=== PATIENT | male | born 1970 | race Caucasian/White ===

== ENCOUNTER 2021-04-24 10:33 | Emergency (ER) | payer OTHER ==
[2021-04-24 10:42] VITALS: BP 134/80; PULSE 87; TEMP 98; BMI 30.1
[2021-04-24] MEDS ORDERED: IBUPROFEN 600 MG TABLET (FP) PO ONE ×2 (10:53→11:14)
== END 2021-04-24 12:12 | disposition home or self-care (01) ==
LOC: JERFT 10:33
DX: S62.664A Nondisplaced fracture of distal phalanx of right ring finger, initial encounter for closed fracture (principal); W45.8XXA Other foreign body or object entering through skin, initial encounter; W25.XXXA Contact with sharp glass, initial encounter
CPT/HCPCS: 73140-TC-RT-FY; 99283-25

== ENCOUNTER 2021-05-04 11:27 | Emergency (ER) | payer BC, OTHER ==
[2021-05-04 11:32] VITALS: BP 145/88; PULSE 75; TEMP 97.9
[2021-05-04] MEDS ORDERED: FAMOTIDINE 20 MG TABLET PO ONE (12:14)
[2021-05-04] MEDS ORDERED: ACETAMINOPHEN 500 MG TABLET (FP) PO ONE (12:14)
[2021-05-04] MEDS ORDERED: MAG HYDROX/AL HYDROX/SIMETH 30 ML UNIT-DOSE CUP PO ONE (12:14)
[2021-05-04] MEDS ORDERED: FAMOTIDINE 20 MG TABLET ONE (12:25)
[2021-05-04] MEDS ORDERED: MAG HYDROX/AL HYDROX/SIMETH 30 ML UNIT-DOSE CUP ONE (12:26)
[2021-05-04 13:36] LABS: BASO % 0.8 % (0-2.0); HEMATOCRIT 41.8 % (35.4-49); LYMPH % 32.1 % (8-40); MCH 28.8 pg (25.7-33.7); MCHC 33.4 g/dl (32.0-35.9); MEAN CELL VOLUME 86.2 fl (80-96); MONO % 9.7 % (3.8-10.2); NEUT % 53.4 % (42.8-82.8); PLATELET COUNT 212 10^3/uL (134-434); RBC 4.85 M/mm3 (4.00-5.60); RDW 13.1 % (11.9-15.9); WHITE BLOOD COUNT 7.2 K/mm3 (4.0-10.0)
[2021-05-04 14:01] LABS: CALCIUM 9.2 mg/dL (8.5-10.1)
[2021-05-04 14:02] LABS: ALBUMIN 3.9 g/dl (3.4-5.0); BLOOD UREA NITROGEN 14.8 mg/dL (7-18)
[2021-05-04 14:06] LABS: BILIRUBIN,TOTAL 0.9 mg/dL (0.2-1); TOT PROT 7.5 g/dl (6.4-8.2)
== END 2021-05-04 14:13 | disposition home or self-care (01) ==
LOC: JER 11:27
DX: R10.13 Epigastric pain (principal)
CPT/HCPCS: 36415; 71046-TC-FY; 80053; 82550; 83690; 84484; 85025; 93005; 93010; 99285-25

== ENCOUNTER 2021-05-27 04:32 | Day surgery (SDC) | payer BC, OTHER ==
[2021-05-22 10:09] VITALS: BMI 30.4
[2021-05-27] MEDS ORDERED: LIDOCAINE HCL 1%, 10 MG/ML (20ML VIAL) ONE (10:37)
[2021-05-27] MEDS ORDERED: BUPIVACAINE HCL/PF 0.5% (5MG/ML) 10 ML VIAL ONE (10:37)
[2021-05-27] MEDS ORDERED: MIDAZOLAM HCL 2 MG/2 ML SINGLE DOSE VIAL ONE (10:47)
[2021-05-27] MEDS ORDERED: ceFAZolin 2 GRAM PREMIX BAG IVPB ONE ×2 (10:54→11:10)
[2021-05-27] MEDS ORDERED: BUPIVACAINE HCL/PF 0.5% (5MG/ML) 10 ML VIAL IJ ONE ×2 (10:55→11:12)
[2021-05-27] MEDS ORDERED: LIDOCAINE HCL 1%, 10 MG/ML (20ML VIAL) NR ONE ×2 (10:55→11:12)
[2021-05-27] MEDS ORDERED: PROPOFOL 20 ML ONE ×2 (11:29)
[2021-05-27] MEDS ORDERED: oxyCODONE HCL 5 MG TABLET PO PRN ×2 (11:33)
[2021-05-27] MEDS ORDERED: ONDANSETRON 4 MG/2 ML VIAL IVPUSH PRN (11:33)
[2021-05-27] MEDS ORDERED: LACTATED RINGERS SOLUTION 1,000 ML IV SCH (11:45)
[2021-05-27 13:28] VITALS: BP 138/87; PULSE 69; TEMP 98.4
== END 2021-05-27 13:30 | disposition home or self-care (01) ==
LOC: JASU-SURG 04:32
PROVIDERS: ATTEND Orthopaedic Surgery
PROC: 0JCJ0ZZ Extirpation of Matter from Right Hand Subcutaneous Tissue and Fascia, Open Approach (ICD-10-PCS; principal; 2021-05-27 10:00)
DX: S60.454A Superficial foreign body of right ring finger, initial encounter (principal); X58.XXXA Exposure to other specified factors, initial encounter; Y93.9 Activity, unspecified; Y92.9 Unspecified place or not applicable
CPT/HCPCS: 76000-TC-FY; 88300-TC